=== PATIENT | female | born 1950 | race Caucasian/White ===

== ENCOUNTER 2018-06-11 18:58 | Emergency (ER) | payer OTHER ==
[2018-06-11 18:58] VITALS: BMI 26.6
[2018-06-11 21:11] LABS: URINE BILIRUBIN NEGATIVE (NEGATIVE); URINE BLOOD NEGATIVE (NEGATIVE); URINE CLARITY Clear (Clear); URINE COLOR Straw (YELLOW); URINE GLUCOSE (UA) NORMAL (Normal); URINE LEUKOCYTE ESTERASE NEG Leu/uL (Negative); URINE PROTEIN NEGATIVE (NEGATIVE); URINE UROBILINOGEN NORMAL mg/dL (0.2-1.0)
--- NOTE | 2018-06-11 21:43 | C.PDOC ---
History Of Present Illness 68 year old female presents to the ED complaining of dizziness for one day. Reports similar presentation in the past and admits she feels better after a bowel movement. Reports she had a bowel movement in the ED and the dizziness res olved. Denies any nausea, vomiting, fever, chills, dysuria, hematuria, abdominal pain, headache, or any other symptoms. Also notes she has been eating a lot. States her PMD suggested a change in dietary habits because she has high blood pressure and high cholesterol. Reports she is currently taking Prednisone prescribed by her PMD Dr Benjy Nino. Time Seen by Provider: 06/11/18 19:57 Chief Complaint (Nursing): Dizziness/Lightheaded History Per: Patient History/Exam Limitations: no limitations Onset/Duration Of Symptoms: Days (1) Current Symptoms Are (Timing): Gone Seizure Or Post-ictal Symptoms: None Fall Associated With With Symptoms: No Severity: None Pain Scale Rating Of: 0 Past Medical History Reviewed: Historical Data, Nursing Documentation, Vital Signs Vital Signs: Last Vital Signs Temp 97.1 F L 06/11/18 19:26 Pulse 83 06/11/18 19:26 Resp 22 06/11/18 19:26 BP 160/81 H 06/11/18 19:26 Pulse Ox 99 06/11/18 19:26 - Medical History PMH: Hypercholesterolemia Family History: States: No Known Family Hx - Social History Hx Tobacco Use: No Hx Alcohol Use: No Hx Substance Use: No - Immunization History Hx Tetanus Toxoid Vaccination: No Hx Influenza Vaccination: No Hx Pneumococcal Vaccination: No Review Of Systems Except As Marked, All Systems Reviewed And Found Negative. Constitutional: Negative for: Fever, Chills Cardiovascular: Negative for: Chest Pain Respiratory: Negative for: Cough, Shortness of Breath Gastrointestinal: Negative for: Nausea, Vomiting, Abdominal Pain, Diarrhea Genitourinary: Negative for: Dysuria, Hematuria Neurological: Positive for: Dizziness Physical Exam - Physical Exam Additional Physical Exam Comments: General- Well appearing, Non-toxic, No acute distress Head- Normocephalic, Atraumatic Eyes- PERRL, EOMI, (Conjunctiva clear), No nystagmus Ears - Normal inspection. TM clear. Mucosa- Moist Chest- Symmetrical Cardiovascular: Rhythm Regular, No murmur, (Normal S1, S2) Resp- no wheezing, rales, or rhonchi, Lungs CTA bilaterally Abd- Soft. Nontender. No distension. No guarding, no rebound Ext: Bilateral (atraumatic, normal color and temperature, no cyanosis or edema) DP pulses 2+ Neuro- Oriented x3, GCS 15, CN 2-12 intact, normal sensation, normal motor (5/5 muscle strength) Gait: steady ED Course And Treatment - Laboratory Results Result Diagrams: 06/11/18 21:51 06/11/18 21:51 O2 Sat by Pulse Oximetry: 99 (RA) Pulse Ox Interpretation: Normal Medical Decision Making Medical Decision Making: Plan - UA - Bloodwork Disposition Counseled Patient/Family Regarding: Studies Performed, Diagnosis, Need For Followup - Disposition Referrals: Lupis Delatorre [Staff Provider] - Disposition: HOME/ ROUTINE Disposition Time: 22:49 Condition: IMPROVED Instructions: Dizziness, Nonvertigo, (DC) Forms: [facility] (Gu[place]an) - POA Present On Arrival: None - Clinical Impression Clinical Impression: Dizziness - Scribe Statement The provider has reviewed the documentation as recorded by the Sandraibquirino Tompkins All medical record entries made by the Sandraibquirino were at my direction and p ersonally dictated by me. I have reviewed the chart and agree that the record accurately reflects my personal performance of the history, physical exam, medical decision making, and the department course for this patient. I have also personally directed, reviewed, and agree with the discharge instructions and disposition.
[2018-06-11 21:55] LABS: BASO % 0.2 % (0.0-2.0); EOS # 0.1 K/uL (0.0-0.7); EOS % 1.9 % (0.0-4.0); HEMOGLOBIN 12.2 g/dL (11.0-16.0); LYMPH # 3.1 K/uL (1.0-4.3); LYMPH % 42.5 % (20.0-40.0); MEAN CELL VOLUME 80.1 fL (81.0-99.0); MEAN CORPUSCULAR HEMOGLOBIN 25.6 pg (27.0-31.0); MEAN PLATELET VOLUME 9.1 fL (7.2-11.7); MONO # 0.5 K/uL (0.0-0.8); MONO % 6.4 % (0.0-10.0); NEUT # 3.6 K/uL (1.8-7.0); RBC 4.78 Mil/uL (3.80-5.20); RED CELL DISTRIBUTION WIDTH 15.6 % (11.5-14.5); WHITE BLOOD COUNT 7.4 K/uL (4.8-10.8)
[2018-06-11 22:08] LABS: BLOOD UREA NITROGEN 18 mg/dL (7-17); GFR NON-AFRICAN AMERICAN > 60
[2018-06-11 22:09] LABS: ALB/GLOB RATIO 1.2 (1.0-2.1); ALBUMIN 4.6 g/dL (3.5-5.0); ALT/SGPT 19 U/L (9-52); AST/SGOT 36 U/L (14-36)
[2018-06-11 23:00] VITALS: BP 150/69; PULSE 68; RESP 18; TEMP 98.6; O2SAT 100
== END 2018-06-11 23:04 | disposition home or self-care (01) ==
LOC: C.ER 18:58
DX: R42 Dizziness and giddiness (principal); E78.00 Pure hypercholesterolemia, unspecified